=== PATIENT | male | born 1970 | race Two or more races ===

== ENCOUNTER 2023-06-09 06:46 | Emergency (ER) | payer OTHER ==
[~2023-06-09] VITALS: Ht 177.8 cm; Wt 97.1 kg
[2023-06-09] MEDS ORDERED: LEVOTHYROXINE100 MCG PO (07:17)
[2023-06-09] MEDS ORDERED: TUSNEL LIQUID178 ML PO (09:41)
[2023-06-09] MEDS ORDERED: PAXLOVID 300-11 EACH PO (09:41)
[2023-06-09] MEDS ORDERED: PROAIR RESPICL90 MCG IH (09:41)
== END 2023-06-09 09:49 | disposition home or self-care (01) ==
LOC: ER 06:46
DX: U07.1 COVID-19 (principal); B34.9 Viral infection, unspecified; R53.81 Other malaise